=== PATIENT | female | born 1980 ===

== ENCOUNTER 2017-01-08 22:08 | Emergency (ER) | payer OTHER ==
[2017-01-08 22:15] VITALS: BP 133/83; PULSE 96; RESP 18; TEMP 98.7; O2SAT 99
--- NOTE | 2017-01-08 22:31 | ED PDOC ---
HPI: Psych/Substance Abuse Time Seen by Provider: 01/08/17 22:18 Chief Complaint (Nursing): Psychiatric Evaluation Chief Complaint (Provider): crisis eval History Per: Patient Additional Complaint(s): 36 year old female presents for crisis eval. Patient had conversation over the phone with her boyfriend and she became very upset. She verbalized that she was going to overdose on pills and kill herself. Her boyfriend lives in [place] and called police out of concern for patient's safety. Patient was brought here for evaluation. Patient admits to being upset secondary to conversation but denies suicidal or homicidal ideation. Patient denies alcohol or drug use and offers no acute medical complaints at this time. Past Medical History Reviewed: Historical Data, Nursing Documentation, Vital Signs Vital Signs: Last Vital Signs Temp 98.7 F 01/08/17 22:11 Pulse 96 H 01/08/17 22:11 Resp 18 01/08/17 22:11 BP 133/83 01/08/17 22:11 Pulse Ox 99 01/08/17 22:11 - Medical History PMH: No Chronic Diseases - Surgical History Other surgeries: myomectomy - Family History Family History: States: No Known Family Hx - Living Arrangements Living Arrangements: With Family - Social History Current smoker - smoking cessation education provided: No Alcohol: None Drugs: Denies - Home Medications Home Medications: Ambulatory Orders Medication Instructions Recorded No Known Home Med 01/08/17 - Allergies Allergies/Adverse Reactions: Allergies Allergy/AdvReac Type Severity Reaction Status Date / Time No Known Allergies Allergy Verified 01/08/17 22:11 Review of Systems ROS Statement: Except As Marked, All Systems Reviewed And Found Negative Psych: Positive for: Other (argument with boyfriend over the phone, expressed thoughts of self harm but denies feeling this way upon arrival) Physical Exam - Reviewed Nursing Documentation Reviewed: Yes Vital Signs Reviewed: Yes - Physical Exam Appears: Positive for: Well, Non-toxic, No Acute Distress Skin: Negative for: Rash Eye Exam: Positive for: Normal appearance Cardiovascular/Chest: Positive for: Regular Rate, Rhythm Respiratory: Positive for: Normal Breath Sounds Neurologic/Psych: Positive for: Alert, Oriented, Mood/Affect (appropriate) - ECG O2 Sat by Pulse Oximetry: 99 Pulse Ox Interpretation: Normal Medical Decision Making Medical Decision Makin36 year old her for crisis eval Plan: Crisis consult Disposition - Clinical Impression Clinical Impression: Suicidal ideation - Patient ED Disposition Is Patient to be Admitted: No Counseled Patient/Family Regarding: Diagnosis - Disposition Disposition: Transfer of Care Disposition Time: 23:41 Condition: STABLE Instructions: Mood Disorders (ED) Patient Signed Over To: Aminata Peters Handoff Comments: Signed out pending crisis dept disposition
--- NOTE | 2017-01-09 01:00 | ED PDOC ---
- ECG O2 Sat by Pulse Oximetry: 99 - Progress ED Course And Treament: Case endorsed to senior writer from Georgette HERNANDES pending crisis eval final dispo Patient to be discharged as per metal bonding worker/Dr. Hunter Information given for outpatient follow up Return to ED for worsening/concerning symptoms. Disposition - Clinical Impression Clinical Impression: Adjustment disorder - POA Present On Arrival: None - Disposition Disposition: Routine/Home Disposition Time: 01:00 Condition: STABLE Instructions: Mood Disorders (ED)
== END 2017-01-09 01:11 | disposition home or self-care (01) ==
LOC: H.ER 22:08
DX: F43.20 Adjustment disorder, unspecified (principal); R45.851 Suicidal ideations